=== PATIENT | female | born 1960 | race Caucasian/White ===

== ENCOUNTER → 2017-08-25 | Outpatient (CLI) | payer OTHER ==
[~2017-08-25] MED LIST: IODINE PLUS PO; PNT40TEC PO; THYR120T2 PO; [UNRECOGNIZED DRUG - OTHER] PO
--- NOTE | 2017-08-25 12:52 | Diagnostic Imaging Report ---
EXAMINATION: Left lower extremity nonvascular ultrasound. INDICATION: Palpable mass. FINDINGS: Reportedly, there is a palpable abnormality in the popliteal space. The ultrasound examination of this area shows no discrete cystic mass that would indicate a Hagan's cyst in this region. There is a small 3 x 4 mm echogenic density in the subcutaneous fat. This may represent a minute lipoma. No other mass or abscess is identified. There is good blood flow in the popliteal artery and vein. IMPRESSION: 1. There is no evidence for a Hagan's cyst. 2. The small echogenic density within the subcutaneous fat may represent a lipoma. Dictated by: Dictated on workstation # [id number]
== END ==
LOC: RAD 11:10
DX: R22.42 Localized swelling, mass and lump, left lower limb (principal); M25.562 Pain in left knee
CPT/HCPCS: 76881